=== PATIENT | male | born 1985 | race Caucasian/White ===

== ENCOUNTER 2017-02-10 09:26 | Emergency (ER) | payer SELFPAY ==
[2017-02-10 09:40] VITALS: TEMP 98.1; BMI 28.1
[2017-02-10] MEDS ORDERED: KETOROLAC TROMETHAMINE 30 MG/1 ML VIAL IVPUSH ONE (09:40)
--- NOTE | 2017-02-10 09:59 | PDOC ---
History of Present Illness - General History Source: Patient Exam Limitations: No Limitations - History of Present Illness Initial Comments: 02/10/17 10:00 The patient is a 32 year old male, with a significant past medical history of HIV, who presents to the emergency department complaining of non radiating chest pain beginning this morning upon waking. The patient describes the chest pain as consistent and not exacerbated with movement or exertion. The patient reports associated symptoms of diffuse headache. He reports he took four 81 mg aspirin prior to arrival. He denies any weakness, shortness of breath or diaphoresis. He denies recent fever, chills or dizziness. He denies any recent nausea, vomit, diarrhea or constipation. Primary Care Physician: Dr. Elis Silverman <Henry Begum - Last Filed: 02/10/17 11:01> <Andrei Quiroga - Last Filed: 02/10/17 11:54> - General Chief Complaint: Chest Pain Stated Complaint: CHEST PAIN Time Seen by Provider: 02/10/17 09:30 Past History <Henry Begum - Last Filed: 02/10/17 11:01> - Past Medical History Anemia: No Asthma: No Cancer: No Cardiac Disorders: (HEART MURMUR.) CVA: No COPD: No CHF: No Dementia: No Diabetes: No GI Disorders: No Disorders: No HTN: No Hypercholesterolemia: No HIV: Yes Liver Disease: No Psychiatric Problems: No Seizures: No Thyroid Disease: No - Psycho/Social/Smoking Cessation Hx Anxiety: No Suicidal Ideation: No Smoking Status: No Smoking History: Never smoked Have you smoked in the past 12 months: No Number of Cigarettes Smoked Daily: 0 Cigars Per Day: 0 Hx Alcohol Use: No Drug/Substance Use Hx: No Substance Use Type: None Hx Substance Use Treatment: No <Andrei Quiroga - Last Filed: 02/10/17 11:54> - Past Medical History Allergies/Adverse Reactions: Allergies Allergy/AdvReac Type Severity Reaction Status Date / Time sulfamethoxazole Allergy Severe anaphylaxis Verified 02/10/17 09:32 [From Bactrim] trimethoprim [From Bactrim] Allergy Severe anaphylaxis Verified 02/10/17 09:32 diphenhydramine HCl Allergy Unknown anaphylaxis Verified 02/10/17 09:32 [From Benadryl] clindamycin AdvReac Severe anaphylaxis Verified 02/10/17 09:32 Home Medications: Ambulatory Orders Efavirenz/Emtricitab/Tenofovir [Atripla Tablet -] 1 tab PO DAILY #30 tab Review of Systems - Review of Systems Comments:: 02/10/17 10:01 GENERAL/CONSTITUTIONAL: No fever or chills. No weakness. HEAD, EYES, EARS, NOSE AND THROAT: No change in vision. No ear pain or discharge. No sore throat. CARDIOVASCULAR: +Chest pain. No shortness of breath. RESPIRATORY: No cough, wheezing, or hemoptysis. GASTROINTESTINAL: No nausea, vomiting, diarrhea or constipation. GENITOURINARY: No dysuria, frequency, or change in urination. MUSCULOSKELETAL: No joint or muscle swelling or pain. No neck or back pain. SKIN: No rash NEUROLOGIC: +Headache. No vertigo, loss of consciousness, or change in strength/ sensation. ENDOCRINE: No increased thirst. No abnormal weight change. HEMATOLOGIC/LYMPHATIC: No anemia, easy bleeding, or history of blood clots. ALLERGIC/IMMUNOLOGIC: No hives or skin allergy. <Henry Begum - Last Filed: 02/10/17 11:01> *Physical Exam - Vital Signs Last Vital Signs Temp Pulse Resp BP Pulse Ox 98.1 F 80 18 127/54 100 02/10/17 09:33 02/10/17 09:33 02/10/17 09:33 02/10/17 09:33 02/10/17 09:33 - Physical Exam Comments: 02/10/17 10:01 GENERAL: Awake, alert, and fully oriented, in no acute distress HEAD: No signs of trauma EYES: PERRLA, EOMI, sclera anicteric, conjunctiva clear ENT: Auricles normal inspection, hearing grossly normal, nares patent, oropharynx clear without exudates. Moist mucosa NECK: Normal ROM, supple, no lymphadenopathy, JVD, or masses LUNGS: Breath sounds equal, clear to auscultation bilaterally. No wheezes, and no crackles HEART: Regular rate and rhythm, normal S1 and S2, no murmurs, rubs or gallops. Chest pain is not reproducible with palpation. ABDOMEN: Soft, nontender, normoactive bowel sounds. No guarding, no rebound. No masses EXTREMITIES: Normal range of motion, no edema. No clubbing or cyanosis. No cords, erythema, or tenderness NEUROLOGICAL: Cranial nerves II through XII grossly intact. Normal speech, normal gait SKIN: Warm, Dry, normal turgor, no rashes or lesions noted. <Henry Begum - Last Filed: 02/10/17 11:01> - Vital Signs Last Vital Signs Temp Pulse Resp BP Pulse Ox 98.1 F 80 18 127/54 100 02/10/17 09:33 02/10/17 09:33 02/10/17 09:33 02/10/17 09:33 02/10/17 09:33 <Andrei Quiroga - Last Filed: 02/10/17 11:54> Heart Score/ECG Review #1 02/10/17 10:09 Normal sinus rhythm with sinus arrhythmia Minimal voltage criteria for LVH, may be normal variant Borderline ECG Vent rate 85 bpm LA interval 144 ms QRS duration 84 ms QT/QTc 370/440 ms P-R-T axes 38 11 36 <Henry Begum - Last Filed: 02/10/17 11:01> ED Treatment Course - LABORATORY CBC & Chemistry Diagram: 02/10/17 10:03 02/10/17 10:03 - RADIOLOGY Radiograph Interpretation: 02/10/17 10:40 [id number] RAD/CHEST X-RAY PORTABLE* AP Portable Chest: Chest pain Since the prior study of 10/05/2016 there is no change of an adverse nature. There are clear lungs, normal mediastinum and sharp angles. The bones and soft tissue are intact. Impression - No acute pathology. No significant change. Reported by Dr. Henry Golden <Henry Begum - Last Filed: 02/10/17 11:01> - LABORATORY CBC & Chemistry Diagram: 02/10/17 10:03 02/10/17 10:03 - RADIOLOGY Radiology Studies Ordered: Category Date Time Status CHEST X-RAY PORTABLE* [RAD] Stat Radiology 02/10/17 09:40 Ordered <Andrei Quiroga - Last Filed: 02/10/17 11:54> *DC/Admit/Observation/Transfer - Attestations Scribe Attestion: 02/10/17 10:04 Documentation prepared by Henry Begum, acting as general medical practitioner for Andrei Quiroga DO. <Henry Begum - Last Filed: 02/10/17 11:01> - Discharge Dispostion Admit: No - Attestations Physician Attestion: 02/10/17 09:59 I, Dr. Andrei Quiroga, attest that this document has been prepared under my direction and personally reviewed by me in its entirety. I further attest, that it accurately reflects all work, treatment, procedures and medical decision -making performed by me. <Andrei Quiroga - Last Filed: 02/10/17 11:54> Diagnosis at time of Disposition: Atypical chest pain - Discharge Dispostion Disposition: HOME Condition at time of disposition: Good - Referrals Referrals: Elis Silverman FNP [Primary Care Provider] - - Patient Instructions Printed Discharge Instructions: DI for Atypical Chest Pain Additional Instructions: Yaya- All of your tests are normal. Take it easy and return to us if new symptoms occur or you feel worse. Follow up with your doctor later this week. Best- Dr. Andrei Quiroga - Post Discharge Activity Work/School Note: Back to Work
[2017-02-10] MEDS ORDERED: KETOROLAC TROMETHAMINE 30 MG/1 ML VIAL ONE (10:09)
[2017-02-10 10:17] LABS: BASOPHIL 0.4 % (0-2.0); EOSINOPHIL 0.5 % (0-4.5); MCHC 34.1 g/dl (32.0-35.9); MEAN CELL VOLUME 87.9 fl (80-96); MEAN PLT VOLUME 7.5 fl (7.5-11.1); PLATELET COUNT 253 K/MM3 (134-434); RDW 13.1 % (11.9-15.9); WHITE BLOOD COUNT 7.4 K/mm3 (4.0-10.0)
[2017-02-10 10:31] LABS: INR 1.04 (0.82-1.09)
[2017-02-10 10:40] LABS: ALBUMIN 3.8 g/dl (3.4-5.0); ANION GAP 5 (8-16); BILIRUBIN,TOTAL 0.4 mg/dL (0.2-1.0); CALCIUM 9.2 mg/dL (8.5-10.1); CO2 29 mmol/L (21-32); CREATININE 0.8 mg/dL (0.7-1.3); GLUCOSE,RANDOM 96 mg/dL (74-106); SGOT/AST 24 U/L (15-37); SGPT/ALT 51 U/L (12-78)
[2017-02-10 10:44] LABS: ALK PHOS 181 U/L (45-117); CPK 111 IU/L (39-308); TOT PROT 7.8 g/dl (6.4-8.2); TROPONIN I < 0.02 ng/ml (0.00-0.05)
[2017-02-10 11:33] LABS: D-DIMER < 200 ng/ml (<200-235)
[2017-02-10 12:07] VITALS: BP 118/55; PULSE 76
--- NOTE | 2017-02-10 20:03 | EKG ---
Test Reason : Blood Pressure : / mmHG Vent. Rate : 085 BPM Atrial Rate : 085 BPM P-R Int : 144 ms QRS Dur : 084 ms QT Int : 370 ms P-R-T Axes : 038 011 036 degrees QTc Int : 440 ms NORMAL SINUS RHYTHM WITH SINUS ARRHYTHMIA MINIMAL VOLTAGE CRITERIA FOR LVH, MAY BE NORMAL VARIANT BORDERLINE ECG NO PREVIOUS ECGS AVAILABLE Confirmed by WILFRED VILLALTA MD ([id number]) on 02/10/2017 8:03:30 PM Referred By: Confirmed By:WILFRED VILLALTA MD
== END 2017-02-10 12:07 | disposition home or self-care (01) ==
LOC: JER 09:26 → SUPCPDRO 09:26 → JER 12:07
PROC: 3E0333Z Introduction of Anti-inflammatory into Peripheral Vein, Percutaneous Approach (ICD-10-PCS; principal; 2017-02-10)
DX: R07.89 Other chest pain (principal); R51 Headache; Z21 Asymptomatic human immunodeficiency virus [HIV] infection status
CPT/HCPCS: 36415; 71010-TC; 80053; 84484; 85025; 85379; 85610; 93005; 93010; 99285-25